=== PATIENT | female | born 1970 | race Caucasian/White ===

== ENCOUNTER 2017-08-11 10:39 | Emergency (ER) | payer BC ==
--- NOTE | 2017-08-11 12:17 | UC ---
Eye Complaint HPI - HPI Summary HPI Summary: ONSET OF BILATERAL EYE REDNESS AND IRRITATION LAST NIGHT. THIS MORNING EYES CRUSTED SHUT. NO VISUAL DISTURBANCE, FLORES, NAUSEA OR PHOTOPHOBIA. HAS HAD MILD COUGH AND CONGESTION PAST FEW DAYS. NO FEVER. NO FB SENSATION OR PAIN WITH EOM. - History of Current Complaint Chief Complaint: UCEye Stated Complaint: CONJUNCTIVITIS Time Seen by Provider: 08/11/17 11:56 Hx Obtained From: Patient Hx Last Menstrual Period: 07/29/17 Onset/Duration: Gradual Onset, Lasting Hours, Still Present Timing: Constant Severity Initially: Moderate Severity Currently: Moderate Pain Intensity: 0 Pain Scale Used: 0-10 Numeric Location of Injury: Conjunctiva Aggravating Factor(s): Blinking Alleviating Factor(s): Nothing Associated Signs And Symptoms: Positive: Drainage (Clear). Negative: Photophobia, Vision Impairment Bilateral, Vision Impairment Right, Vision Impairment Left, Fever - Allergies/Home Medications Allergies/Adverse Reactions: Allergies Allergy/AdvReac Type Severity Reaction Status Date / Time Morphine and Related Allergy Severe Nausea And Verified 08/11/17 11:58 Vomiting PMH/Surg Hx/FS Hx/Imm Hx Previously Healthy: Yes - Surgical History Surgical History: Yes Surgery Procedure, Year, and Place: REPAIR RIGHT KNEE FX WITH HARDWEAR - Family History Known Family History: Negative: Hypertension - Social History Alcohol Use: Weekly Substance Use Type: None Smoking Status (MU): Former Smoker When Did the Patient Quit Smoking/Using Tobacco: 4 YEARS AGP Review of Systems Constitutional: Negative Eyes: Drainage, Eye Redness ENT: Nasal Discharge Respiratory: Cough Cardiovascular: Negative Gastrointestinal: Negative All Other Systems Reviewed And Are Negative: Yes Physical Exam Triage Information Reviewed: Yes Appearance: Well-Appearing, No Pain Distress, Well-Nourished Vital Signs: Initial Vital Signs Temp 98 F 08/11/17 11:59 Pulse 76 08/11/17 11:59 Resp 18 08/11/17 11:59 BP 144/86 08/11/17 11:59 Pulse Ox 100 08/11/17 11:59 Vital Signs Reviewed: Yes Eyes: Positive: Conjunctiva Inflamed, Discharge - CLEAR, Other: - PERRL, EOMI ENT: Positive: Hearing grossly normal, Pharynx normal, TMs normal Neck: Positive: Supple, Nontender, No Lymphadenopathy Respiratory Exam: Normal Cardiovascular Exam: Normal Abdomen Description: Positive: Soft Musculoskeletal: Positive: No Edema Neurological: Positive: Alert Psychological: Positive: Age Appropriate Behavior Skin: Negative: rashes Eye Complaint Course/Dx - Differential Dx/Diagnosis Provider Diagnoses: BILATERAL CONJUNCTIVITIS Discharge - Discharge Plan Condition: Stable Disposition: HOME Prescriptions: Ciprofloxacin 0.3% OPTH.FATUMA* [Cipro 0.3% Opth*] 1 drop BOTH EYES Q4H #1 btl Patient Education Materials: Conjunctivitis (ED) Forms: *Work Release [facility] - If Needed
[2017-08-11 12:38] VITALS: BP 144/86
== END 2017-08-11 12:30 | disposition home or self-care (01) ==
LOC: UCCORT 10:39
DX: H10.33 Unspecified acute conjunctivitis, bilateral (principal); Z88.5 Allergy status to narcotic agent; Z87.891 Personal history of nicotine dependence
CPT/HCPCS: 99202; G0463